=== PATIENT | female | born 1955 | race Two or more races ===

== ENCOUNTER 2024-06-22 09:26 | Day surgery (SDC) | payer OTHER, SELFPAY ==
[2024-06-22] VITALS (14 sets, daily range): BP systolic 114–151; BP diastolic 53–98; BMI 33.5
[2024-06-22] MEDS: NSS 234 ML IV (10:41)
--- NOTE | 2024-06-22 12:03 | ITS.CL.CATH ---
[facility] St[facility] - Catheterization
Cardiac Catheterization
Procedure Report:
CARDIAC CATHETERIZATION REPORT
Date of Procedure: 06/22/2024
Referring: Aaron Spain MD
Indication: Severe aortic stenosis with syncope x 3 and exertional dyspnea
�
HEMODYNAMIC DATA
AO: 136/58
LV: Not done
�
LEFT VENTRICULOGRAPHY: Not performed
�
CORONARY ANGIOGRAPHY
Dominance: Left
Left Main: Normal
LAD: Normal
Circumflex: Normal dominant vessel
RCA: Normal nondominant vessel
�
Closure Device: None-the procedure was performed via the right radial artery.
�
Radiation (mGy): 278
DAP (cm2.Gy): 26.1
Fluoroscopy time: 9.5 minutes
�
CONCLUSIONS
1:�Normal coronary arteries
2:�Symptomatic severe aortic stenosis not invasively evaluated
3. Proceed with evaluation for TAVR
�
�
Copy to: Aaron Spain MD, Migel Hernández MD
�
Dario Giordano MD, FAC, [facility]
--- NOTE | 2024-06-22 14:12 | CONSULT.STRU ---
Consultation
-
Date/Time Consultation Requested: 06/22/2024
Date/Time Consultation Performed: 06/22/2024
Requesting Provider: Dr. Dario Giordano
Performing Provider: JAKE Carreon
Reason for Consultation: Aortic stenosis/ TAVR evaluation
Patient History
Physicians
Family Physician: Migel Hernández
Outpatient Registered Dietitian: Aaron Spain
Primary Registered Dietitian: Aaron Spain
History of Present Illness
Patient is a very pleasant 69yo female who presents today for cardiac cath as part of the evaluation of her aortic stenosis. She denies any significant past medical history and only recently started taking ASA and rosuvastatin. [place] became SOB after climbing up and down several flights of stairs. She states she started to not feel well so sat down then passed out. She was taken to [facility] ([facility] where she had a
complete neuro evaluation. She was found to have a 4.2cm ascending aortic aneurysm, 50% R-ICA stenosis and severe aortic stenosis. After speaking with her prior to the episode in May she had two other syncopal episodes, one on 11/19/2023 and
another on 03/15/2024. These both happened after significant exertion. She does note she feels more fatigued but denies any other significant CHAUDHARY. She denies peripheral edema, chest pain, palpitations, PND or orthopnea. She does have a significant
smoking history of 1 PPD for the past 40 years or so but has quit since May 2024.
Reviewed the pathophysiology of aortic stenosis with the patient and her son. Explained the treatment options of SAVR and TAVR. Explained the TAVR evaluation process including follow up BMP, CT TAVR scan, CT surgery consult and Heart Team
discussion. Provided with script for BMP next week, script and appointment for CT TAVR, Consult appointment with Dr. Mendoza and a copy of the TAVR education booklet with contact information. Allowed for and answered questions.
Past Medical History
Past Medical History: Arrhythmias (First degree AV block), Hypercholesterolemia, Valvular Disease (severe aortic stenosis) and Other (4.2cm ascending thoracic aortic aneurysm, Carotid stenosis(50% R-ICA))
Past Surgical History
Past Surgical History: Other (left knee surgery, breast implants, right wrist surgery)
Dental History
Full dentures - no need for dental clearance
Family History
Mother: at Age (91yo)
Father: at Age (71 (cancer))
Social History
Alcohol: None
Drug: None
Tobacco: Former Smoker (Quit June 03, 2024. Prior 1ppd for 40 years)
Living: Alone
Employment: Employed (works in cafeteria in a school)
Allergies
Allergy/AdvReac Type Severity Reaction Status Date / Time
No Known Allergies Allergy Verified 06/22/24 10:31
Home Medications
�Medication �Instructions �Recorded �Confirmed �Type
aspirin 81 mg chewable tablet 81 mg PO DAILY 06/22/24 06/22/24 History
rosuvastatin 5 mg tablet 5 mg PO DAILY 06/22/24 06/22/24 History
STS%
STS %: 1.65%
Review of Systems
-
History Source: Patient
General: Reports Weight Gain (10 pounds since May) and Fatigue
HEENT: Reports No Symptoms; Denies Visual Changes
Respiratory: Reports Cough (chronic with minimal secretions since quitting smoking)
Cardiac: Reports No Symptoms; Denies Chest Pain, Palpitations or Edema
Abdomen/GI: Reports No Symptoms; Denies Abdominal Pain, Reflux, Nausea, Vomiting or Diarrhea
: Reports No Symptoms
Musculoskeletal: Reports No Symptoms
Skin: Reports No Symptoms
Neurological: Reports Syncope; Denies CVA, TIA or Headaches
Vascular: Reports No Symptoms
Physical Exam
Vital Signs
Temp 97.3 F 06/22/24 12:00
Temp route: Temporal 06/22/24 10:05
Pulse 61 06/22/24 13:30
Blood pressure 129/60 06/22/24 13:27
Blood pressure extremity used: Left upper arm 06/22/24 12:00
Position: Lying 06/22/24 12:00
MAP (cuff-Daniel Monitor) 83 06/22/24 13:27
SaO2 97 06/22/24 13:30
Oxygen Mode of Delivery Room air 06/22/24 12:15
Can the patient verbally communicate their pain? Yes 06/22/24 12:15
Actual Weight 77.9 kg 06/22/24 10:39
Body Mass Index (BMI) 33.5 06/22/24 10:39
Labs
06/15/2024:
H/H: 12.7/38.6
WBC: 6.5
Platelets: [id number]
BUN/Creat: 18/0.97
GFR: 62
Diagnostic Studies
Echocardiogram 06/04/2024 ([facility])
EF: 60-65%
AV: moderate calcification of the aortic valve. There is severe aortic valve stenosis. JADEN is [id number] is no AI.
MV: Mitral valve appears thickened. Mild MAC, No mitral regurgitation or mitral stenosis.
Pulmonic valve: normal
Tricuspid Valve: Appears normal in structure. Mild TR. Mild pulmonary HTN. No tricuspid valve stenosis
Cardiac Catheterization 06/22/2024:
HEMODYNAMIC DATA
AO: 136/58
LV: Not done
�
LEFT VENTRICULOGRAPHY: Not performed
�
CORONARY ANGIOGRAPHY
Dominance: Left
Left Main: Normal
LAD: Normal
Circumflex: Normal dominant vessel
RCA: Normal nondominant vessel
�
Closure Device: None-the procedure was performed via the right radial artery.
�
Radiation (mGy): 278
DAP (cm2.Gy): 26.1
Fluoroscopy time: 9.5 minutes
�
CONCLUSIONS
1:�Normal coronary arteries
2:�Symptomatic severe aortic stenosis not invasively evaluated
3. Proceed with evaluation for TAVR
�
Exam
General: Well Developed, Well Nourished, No Apparent Distress and Comfortable
HEENT: Normocephalic, Moist Mucous Membranes and PERRLA
Neck: Trachea Midline
Respiratory: Clear; Negative Wheezes, Crackles, Rhonchi or Accessory Muscle Use
Cardiac: S1/S2, Regular Rhythm and Murmur (Grade III/ systolic murmur)
GI: Soft, Non Tender, Non Distended and Normal Bowel Sounds
Rectal: Deferred by Provider
Skin: Warm and Dry
Neuro: AO x 3, No Motor Deficits and Nonfocal/Grossly Intact
Extremities: Pulses (+@ dp/pt pulses bilaterally); Negative Lower Level Edema
Psych: Calm
Assessment / Plan
-
Procedure Type:�Isolated AVR
PERIOPERATIVE OUTCOME ESTIMATE %
Operative Mortality 1.65%
Morbidity & Mortality 6.09%
Stroke 1.04%
Renal Failure 1%
Reoperation 2.91%
Prolonged Ventilation 3.22%
Deep Sternal Wound Infection 0.055%
Long Hospital Stay (>14 days) 2.37%
Short Hospital Stay (<6 days)* 54.1%
Severe Aortic stenosis:
��������������� Continue evaluation for TAVR
��������������� [facility]
��������������� CT TAVR scan 07/10/2024 at
��������������� CT surgery consult with Dr. Mendoza 07/10/2024
��������������� Heart team discussion at [facility]
Data Reviewed
-
EKG: Report Reviewed by me
Real Estate Administrator: Report Reviewed by me and Discussed with Physician
Echo: Report Reviewed by me
CT Scan: Report Reviewed by me
MRI: Report Reviewed by me
Labs: Labs Reviewed by me
Old Records: Reviewed (Records from [facility], cardiology consult note)
Total Time Spent with Patient (in minutes): 30
== END 2024-06-22 15:45 | disposition home or self-care (01) ==
LOC: CATH 09:26
PROVIDERS: ATTENDING PHYSICIAN Internal Medicine Cardiovascular Disease; FAMILY PHYSICIAN Family Medicine; OTHER PHYSICIAN Internal Medicine Cardiovascular Disease
DX: I35.0 Nonrheumatic aortic (valve) stenosis (principal); R06.09 Other forms of dyspnea; E78.00 Pure hypercholesterolemia, unspecified; I71.21 Aneurysm of the ascending aorta, without rupture; Z87.891 Personal history of nicotine dependence; Z79.82 Long term (current) use of aspirin
CPT/HCPCS: 93454; C1894; Q9967

== ENCOUNTER → 2024-07-10 09:23 | Outpatient (REF) | payer OTHER, SELFPAY | LOC: RCS 09:23 | PROVIDERS: ATTENDING PHYSICIAN Nurse Practitioner Adult Health; FAMILY PHYSICIAN Family Medicine | DX: I35.0 Nonrheumatic aortic (valve) stenosis (principal) | CPT/HCPCS: 74174; 75572; Q9967 ==

== ENCOUNTER 2024-07-27 04:51 | Inpatient (IN) | payer OTHER, SELFPAY ==
[2024-07-23 08:20] VITALS: BMI 34.4
[2024-07-23 09:00] LABS: INR 0.91
[2024-07-23 09:01] LABS: APTT 35.8 Sec (23.4-35.0)
[2024-07-23 09:02] LABS: % Basophils 0.5 % (0-2); % Eosinophils 4.1 % (0-6); % Immature Granulocytes 0.5 % (0-0.5); % Lymphocytes 27.2 % (20.5-51.1); % Neutrophils 58.7 % (42.2-75.2); Absolute Eosinophils 0.3 10^3/uL (0-0.7); Absolute Lymphocytes 1.8 10^3/uL (1.2-3.4); Absolute Monocytes 0.6 10^3/uL (0.1-0.6); Absolute Neutrophils 3.9 10^3/uL (1.4-6.5); Hematocrit 35.4 % (37.0-47.0); Hemoglobin 12.2 g/dL (12.0-16.0); Mean Corp Hgb Conc. 34.5 g/dL (33.0-37.0); Mean Corpuscular Hgb 32.4 pg (27.0-31.0); Mean Corpuscular Volume 93.9 fL (81.0-99.0); Mean Platelet Volume 10.2 fL (7.4-10.4); Nucleated Red Blood Cells % 0 %; Platelet Count 208 10^3/uL (130-400); Red Blood Cell Count 3.77 10^6/uL (4.20-5.40); Red Cell Dist. Width 12.8 % (11.5-14.5); White Blood Cell Count 6.6 10^3/uL (4.8-10.8)
[2024-07-23 09:20] LABS: Urine Albumin Negative (Neg - Trace); Urine Bilirubin Negative (Negative); Urine Character Clear (Clear); Urine Color Yellow; Urine Glucose Negative (Negative); Urine Ketone Negative (Negative); Urine Leukocyte Negative (Negative); Urine Nitrite Negative (Negative); Urine Occult Blood 1+ (Negative); Urine Specific Gravity 1.005 (<1.030); Urine Urobilinogen Negative (Neg - 1+)
[2024-07-23 09:31] LABS: Urine Bacteria Few (Negative); Urine White Cell 0-2 /HPF (0-5)
[2024-07-23 09:39] LABS: ALT (SGPT) 35 U/L (0-35); AST (SGOT) 33 U/L (14-36); Albumin 4.8 g/dl (3.5-5.0); Alkaline Phosphatase 55 U/L (38-126); Blood Urea Nitrogen 24 mg/dl (7-17); Calcium 10.4 mg/dl (8.4-10.2); Carbon Dioxide 28 mmol/L (22-30); Chloride 101 mmol/L (98-107); Estimated Creatinine Clearance 48 ml/min; Glucose 90 mg/dl (70-99); Potassium 4.8 mmol/L (3.5-5.1); Sodium 143 mmol/L (135-145); Total Bilirubin 0.4 mg/dl (0.2-1.3); Total Protein 7.6 g/dl (6.3-8.2); eGFR > 60.00
[2024-07-23 10:24] LABS: Glycohemoglobin (HgbA1c) 5.3 % (4.0-5.6)
--- NOTE | 2024-07-23 13:31 | CM ---
spoke to pt and daughter in PAT's, we discussed preop AVR teaching including sternal and driving instructions. she is prev indep, lives with her daughter in a 2 story home with no steps to enter. she has the ct surgical educ book, soap and
instructions. plan is for dc to home when medically stable. she is agreeable to a f/u visit with ctrn or vn after dc. plan is for AVR 07/27, cm role explained and all questions answered. cm to follow.
[2024-07-27] VITALS (27 sets, daily range): BP systolic 86–163; BP diastolic 52–78; BMI 33.8
[2024-07-27] MEDS: MAGNESIUM OXIDE 500 MG PO (05:23)
[2024-07-27] MEDS: PROTONIX 40 MG PO (05:23)
[2024-07-27] MEDS: BACTROBAN 2% OINTMENT 1 APPLIC NASAL ×2 (05:23→19:52)
[2024-07-27] MEDS: LOPRESSOR 25 MG PO (05:23)
--- NOTE | 2024-07-27 05:30 | PTCARENOTE ---
admitted pt into CVICU room 2261. pt confirmed 2 showers at home. pt clipped and prepped for CVOR. pre-op meds given. education provided. all questions answered. magnetic resonance imaging coordinator to CVOR.
[2024-07-27 07:27] LABS: ACT+ - POC 93 Seconds (82-134)
[2024-07-27 07:57] LABS: Urine Albumin Negative (Neg - Trace); Urine Bilirubin Negative (Negative); Urine Character Clear (Clear); Urine Color Yellow; Urine Glucose Negative (Negative); Urine Ketone Negative (Negative); Urine Leukocyte Negative (Negative); Urine Nitrite Negative (Negative); Urine Occult Blood 1+ (Negative); Urine Urobilinogen Negative (Neg - 1+)
[2024-07-27 08:12] LABS: Urine Amorphous Seen; Urine Squamous Cell 0-2 /LPF (Few)
[2024-07-27 08:14] LABS: Urine White Cell 0-2 /HPF (0-5)
--- NOTE | 2024-07-27 08:48 | CM ---
Reviewed chart. Mrs. Hernandez is in the operating room today. Prior to admission she resides with her daughter in a two story home without any steps to enter. Prior to adission she was independent with ambulation and adls. She has a prescription
plan. Medical work-up in progress. The discharge plan is to retrun home with her daughter and a home visit by the Cardiothoracic Transitional Care Nurse when medically stable.
[2024-07-27 09:02] LABS: B.E. - POC -0.8 mmol/L; Glucose - POC 87 mg/dl (70-99); HCO3 - POC 24 mmol/L (21-29); Hematocrit - POC 31 % PCV (37-47); Hemodilution- POC No; Hemoglobin Calculated - POC 10.6; Ionized Calcium - POC 1.23 mmol/L (1.12-1.27); PCO2 - POC 41 mmHg (35-45); PO2 - POC 472 mmHg (80-100); POC Comment BASELINE; Potassium - POC 3.7 mmol/L (3.6-5.0); Sodium - POC 141 mmol/L (135-145); pH - POC 7.38 (7.35-7.45)
[2024-07-27 09:26] LABS: B.E. - POC 5.1 mmol/L; Glucose - POC 98 mg/dl (70-99); HCO3 - POC 29 mmol/L (21-29); Hematocrit - POC 24 % PCV (37-47); Hemodilution- POC Yes; Hemoglobin Calculated - POC 8.2; PCO2 - POC 36 mmHg (35-45); PO2 - POC 447 mmHg (80-100); POC Comment CPB; Potassium - POC 3.9 mmol/L (3.6-5.0); Sodium - POC 139 mmol/L (135-145); pH - POC 7.51 (7.35-7.45)
[2024-07-27 09:56] LABS: Glucose - POC 128 mg/dl (70-99); HCO3 - POC 27 mmol/L (21-29); Hematocrit - POC 23 % PCV (37-47); Hemodilution- POC Yes; Hemoglobin Calculated - POC 7.8; Ionized Calcium - POC 1.05 mmol/L (1.12-1.27); PCO2 - POC 35 mmHg (35-45); PO2 - POC 366 mmHg (80-100); POC Comment CPB; Potassium - POC 4.5 mmol/L (3.6-5.0); Sodium - POC 138 mmol/L (135-145)
[2024-07-27 10:37] LABS: B.E. - POC 4.2 mmol/L; Glucose - POC 164 mg/dl (70-99); HCO3 - POC 28 mmol/L (21-29); Hematocrit - POC 26 % PCV (37-47); Hemodilution- POC Yes; Hemoglobin Calculated - POC 8.7; Ionized Calcium - POC 1.08 mmol/L (1.12-1.27); PCO2 - POC 38 mmHg (35-45); PO2 - POC 392 mmHg (80-100); POC Comment WARM; Potassium - POC 4.4 mmol/L (3.6-5.0); Sodium - POC 139 mmol/L (135-145); pH - POC 7.48 (7.35-7.45)
[2024-07-27 10:43] LABS: ACT+ - POC 107 Seconds (82-134)
[2024-07-27 11:37] LABS: B.E. - POC 0.5 mmol/L; Glucose - POC 126 mg/dl (70-99); HCO3 - POC 25 mmol/L (21-29); Hematocrit - POC 25 % PCV (37-47); Hemodilution- POC Yes; Hemoglobin Calculated - POC 8.5; Ionized Calcium - POC 1.48 mmol/L (1.12-1.27); O2 Saturation %Calculated-POC 99.8 % (92-96); PCO2 - POC 36 mmHg (35-45); PO2 - POC 206 mmHg (80-100); POC Comment POST; Potassium - POC 3.9 mmol/L (3.6-5.0); Sodium - POC 141 mmol/L (135-145); pH - POC 7.44 (7.35-7.45)
--- NOTE | 2024-07-27 11:43 | W.CVOR.SURPR ---
CVOR Surgeon Immed Pre Op
-
I have examined this patient prior to performance of the scheduled procedure.
The patient's condition is unchanged from the time of the dictated/written History and
Physical and the patient is able to undergo the scheduled procedure.
--- NOTE | 2024-07-27 11:43 | W.IMMPOSTOP ---
Addendum entered and electronically signed by Gary Mendoza MD 07/27/24 12:23:
[id number]
Original Note:
Surgical Immed Post Op Note
-
CARDIAC SURGERY OPERATIVE NOTE:
Preoperative Dx:
Severe aortic valve stenosis (P/M: 83/56, JADEN 0.72)
Ascending aortic dilation (max 4.4cm)
Postoperative Dx:
Same
BAV
Thin aortic wall
Procedures:
1) Median sternotomy
2) AVR (#23mm Inspiris Resilia)
3) Ascending aortic wrap w/ hemashield kalispel graft
Surgeon:
Gary Mendoza M.D.
Assistants:
Kayleen CaseA.-CMendoza; hr administrative assistant throughout
Bro Giang PMendozaA.-C.; [id number] closure
Anesthesia:
Ulices Carrillo M.D.
Perfusion:
Nesha Mckeon, C.C.P.; XC: 68min, CPB: 85min
Findings:
True bicuspid AV w/ fusion of the right & non-coronary cusps w/ significant leaflet calcifications w/ minor circumferential annular extension. The R&L main coronaries were in their normal anatomic locations, but were quite low as demonstrated on
preop CTA-C.
Ascending aorta was dilated to maximal diameter of 4.4cm
Aortic tissues w/ good/normal tissue strenth w/ thin hoang - ascending aortic wrap performed
POST-KELLY: normal biventricular function w/ well-seated AVR w/o PVL/AI, mean gradient 5mmHg
Implants:
[employer], Inspiris Resilia AVR (23mm); Model [id number], SN: [id number]
Hemashield [place], 34mm, LOT [id number], SN: [id number]
Epicardial V-wire x 1; grounding V-wire
CT x 2 (mediastinal)
Sternal wires x 7
Sternal 'X' plate & 8 12mm screws
Condition:
70 isoelectric sinus. 105/59. 31/21. CVP 19. CO/CI: 2.6/1.5. MvO2: 57 (transfusing 1U PRBC)
GTTS: levophed 1, precedex 0.5, insulin 1
Stable/guarded to CVICU
[2024-07-27 11:45] LABS: B.E. - POC -3.1 mmol/L; Glucose - POC 117 mg/dl (70-99); HCO3 - POC 22 mmol/L (21-29); Hematocrit - POC 23 % PCV (37-47); Hemodilution- POC Yes; Hemoglobin Calculated - POC 7.9; Ionized Calcium - POC 1.21 mmol/L (1.12-1.27); O2 Saturation %Calculated-POC 62.5 % (92-96); PCO2 - POC 41 mmHg (35-45); PO2 - POC 34 mmHg (80-100); Potassium - POC 4.1 mmol/L (3.6-5.0); Sodium - POC 139 mmol/L (135-145); pH - POC 7.35 (7.35-7.45)
[2024-07-27 11:51] LABS: B.E. - POC -1.5 mmol/L; Glucose - POC 128 mg/dl (70-99); HCO3 - POC 24 mmol/L (21-29); Hematocrit - POC 26 % PCV (37-47); Hemodilution- POC Yes; Hemoglobin Calculated - POC 8.9; Ionized Calcium - POC 1.33 mmol/L (1.12-1.27); O2 Saturation %Calculated-POC 57.1 % (92-96); PCO2 - POC 44 mmHg (35-45); PO2 - POC 31 mmHg (80-100); Potassium - POC 4.1 mmol/L (3.6-5.0); Sodium - POC 141 mmol/L (135-145); pH - POC 7.35 (7.35-7.45)
[2024-07-27 12:21] LABS: Glucose - Point of Care 134 mg/dl (70-99)
[2024-07-27 12:30] LABS: B.E. -0.7 mmol/L; HCO3 22.9 mmol/L (21-28); Ionized Calcium 1.25 mMOL/L (1.15-1.33); O2 Saturation % 99.9 % (94-98); PCO2 33 mmHg (32-35); PO2 193 mmHg (83-108); Potassium 4.3 mMOL/L (3.5-5.1); Sodium 139 mMOL/L (136-145); pH 7.45 (7.35-7.45)
[2024-07-27 12:31] LABS: Hematocrit 28.1 % (37.0-47.0); Hemoglobin 9.9 g/dL (12.0-16.0); Platelet Count 130 10^3/uL (130-400)
[2024-07-27 12:34] LABS: Mixed Venous O2 Saturation 83.7 %
[2024-07-27 12:37] LABS: INR 1.33; PT 16.3 Sec (11.4-14.6)
[2024-07-27 12:38] LABS: APTT 33.6 Sec (23.4-35.0)
[2024-07-27 12:51] LABS: Blood Urea Nitrogen 25 mg/dl (7-17); Estimated Creatinine Clearance 53 ml/min; Glucose 125 mg/dl (70-99); Magnesium 2.5 mg/dl (1.6-2.3)
[2024-07-27 13:09] LABS: Glucose - Point of Care 135 mg/dl (70-99)
--- NOTE | 2024-07-27 13:11 | PTCARENOTE ---
07/27/24 Dayshift: Received pt from CVOR@ 1215. Pt is intubated and sedated on Precedex and Insulin. Sedated. Sandhya 3 NSR with 1st degree HB on monitor V-wire attached but not on. R IJ cordis with [place]@45. L radial a-line, zeroed and calibrated.
Pulses palpable, - edema. Lungs clear, ET tube size 7.5, 22@lip. FIO2 60% POX:100. MedsX2 draining red fluid WNL. Hypoactive BS, abdomen soft. [place] intact, draining clear yellow fluid WNL. Sternal incision with Aquacel dressing with scant blood
drainage. Family updated.
--- NOTE | 2024-07-27 13:13 | CON.INTV ---
Consultation
Consultation Request
Date/Time Consultation Requested: 07/27/2024
Date/Time Consultation Performed: 07/27/2020
Requesting Provider: Dr. Mendoza
Performing Provider: Dr. Conrad Chen
Reason for Consultation: Status post AVR
Medical History
-
History of Present Illness:
69-year-old woman with history of severe aortic stenosis, electively admitted for aortic valve replacement. Underwent aortic valve replacement with ascending aortic wrap grafting.
Currently in the critical care unit, sedated. Unable to provide history.
Appears comfortable.
Chest tube in place without air leak.
Past Medical History
Past Medical History: Other (See assessment and plan)
Social History
Tobacco: Smoker (Quit June 03, 2024)
Alcohol: Occasional (Social)
Drug: None
Family History
Family History: Unable to Obtain
Allergies / Home Medications
Allergies
Allergy/AdvReac Type Severity Reaction Status Date / Time
No Known Allergies Allergy Verified 07/19/24 09:07
Home Medications
�Medication �Instructions �Recorded �Confirmed �Last Taken �Type
aspirin 81 mg chewable tablet 81 mg PO DAILY 06/22/24 07/27/24 07/26/24 08:00 History
rosuvastatin 5 mg tablet 5 mg PO DAILY 06/22/24 07/27/24 07/26/24 08:00 History
cholecalciferol (vitamin D3) 25 25 mcg PO DAILY 07/19/24 07/27/24 07/18/24 History
mcg (1,000 unit) capsule (Vitamin
D3)
Review of Systems
-
Unable to Obtain full review of systems at this time due to: Patient Intubation
Vitals / Labs / Diagnostic Testing
Vital Signs
Temp Pulse Resp BP Pulse Ox
95.9 F L 68 12 157/78 98
07/27/24 13:00 07/27/24 12:45 07/27/24 12:45 07/27/24 05:23 07/27/24 12:34
Lab Data
07/27/24 12:16
Laboratory Results
07/27/24
12:16
PT 16.3 H
INR 1.33
APTT 33.6
pH 7.45
pCO2 33
pO2 193 H
HCO3 22.9
O2 Delivery Level
Microbiology
07/23/24 08:32 Nose MRSA Screen - Final
No Methicillin Resistant Staphylococcus aureus isolated.
Diagnostic Testing:
Physical Exam
-
HEENT: Normocephalic and Other (ET tube in place without secretions)
Cardiovascular: S1/S2
Respiratory: Clear, Non-Labored Respirations and Other (Chest tube in place without significant output or air leak)
GI: Soft and Non Distended
Neurology: Other (On mechanical ventilation, sedated)
Skin: Warm and Good Color
General: Comfortable
Assessment
-
Status post AVR and ascending aortic wrap
Postoperative mechanical ventilation
Postoperative anemia
Assessment and plan:
She is doing well postop-currently on mechanical ventilation and appears comfortable.
ABG reviewed: Adequate oxygenation and ventilation
Continue SIMV mode with no change
Spontaneous breathing trial per protocol once sedation wears off.
Anemia noted-no evidence of acute bleeding
Follow H&H serially
Hemodynamics -on low-dose Levophed, wean off as able
Will follow urinary output
Chest tube with no excessive drainage-no air leak.
Chest x-ray reviewed: With no pneumothorax or fluid collections.
Remain nothing by mouth
Head of the bed elevation
Glycemic control per protocol
DVT prophylaxis when safe from the surgical perspective.
Critical care statement: A total of 32 minutes of critical care time was provided for this patient today. This includes management of unstable vital signs, evaluation of the patient at bedside, reviewing the patient's pertinent medical records
including ventilator settings, arterial blood gases, radiographs, microbiology, laboratory evaluations and discussion with primary team, critical care nursing, and respiratory therapy.
[2024-07-27] MEDS: CRESTOR PO (13:52)
[2024-07-27] MEDS: NOVOLOG FLEXPEN SC ×2 (13:52→16:47)
[2024-07-27] MEDS: NEURONTIN PO ×2 (13:52→16:46)
[2024-07-27] MEDS: NSS 500 IV (13:52)
[2024-07-27] MEDS: VITAMIN D3 (cholecalciferol) PO (13:53)
[2024-07-27] MEDS: ANCEF 10 IV ×2 (13:53→13:54)
[2024-07-27] MEDS: LR 250 ML IV (13:55)
--- NOTE | 2024-07-27 14:00 | PTCARENOTE ---
CPAP trial initiated. ABG sent. result reviewed with CTVINI. Respiratory called to extubated.
[2024-07-27 14:01] LABS: Glucose - Point of Care 140 mg/dl (70-99)
[2024-07-27 14:28] LABS: ACT+ - POC > 1003 Seconds (82-134)
[2024-07-27 14:28] LABS: ACT+ - POC > 1003 Seconds (82-134)
[2024-07-27 14:28] LABS: ACT+ - POC > 1003 Seconds (82-134)
[2024-07-27 14:28] LABS: ACT+ - POC > 1003 Seconds (82-134)
--- NOTE | 2024-07-27 14:28 | W.PN.CD ---
Today's Communication / Plan
-
Follow telemetry
Post operative management per CT surgery
Impression / Plan
-
BACKGROUND: 69F with HTN, & PAD, and severe who presented for AVR
Lay Out Helper: Dr. Spain
Severe S/P Inspiris Resilia AVR (23mm) on 07/27/[address] Mendoza
-Post KELLY: Normal biventricular function with well-seated AVR w/o PVL/AI, mean gradient 5mmHg
-EKG with prolonged QT, EKG in am
-Telemetry stable, follow
PAD, 50% calcified lesion inside the right internal carotid artery, on rosuvastatin
SUBJECTIVE:
Intubated. Operative notes reviewed.
Physical Exam
Vital Signs/Labs
Vital Signs
Temp Pulse Resp BP Pulse Ox
97.6 F 68 12 157/78 98
07/27/24 14:00 07/27/24 12:45 07/27/24 12:45 07/27/24 05:23 07/27/24 13:47
07/26/24 07/27/24 07/28/24
06:59 06:59 06:59
Actual Weight 78.4 kg
07/27/24 12:16
PT 16.3 Sec (11.4-14.6) H 07/27/24 12:16
INR 1.33 07/27/24 12:16
APTT 33.6 Sec (23.4-35.0) 07/27/24 12:16
Magnesium 2.5 mg/dl (1.6-2.3) H 07/27/24 12:16
Physical Exam
Constitutional: No acute distress and Comfortable
EENT: Anicteric and Moist mucous membranes
Cardiovascular: Rhythm & rate is regular and Pedal edema is absent
Respiratory: Lungs clear to auscul.
GI: Soft, Distention absent, Flat, Non tender and Normal bowel sounds
Neuro/Psych: Other
Other: Skin (warm and dry)
Data Reviewed
-
Date of Service: July 27, 2024
[2024-07-27] MEDS: OFIRMEV 100 IV (14:37)
[2024-07-27 14:40] LABS: B.E. 0.1 mmol/L; HCO3 22.9 mmol/L (21-28); Ionized Calcium 1.23 mMOL/L (1.15-1.33); O2 Saturation % 99.4 % (94-98); PCO2 30 mmHg (32-35); PO2 130 mmHg (83-108); Potassium 3.9 mMOL/L (3.5-5.1); Sodium 139 mMOL/L (136-145); pH 7.49 (7.35-7.45)
--- NOTE | 2024-07-27 15:05 | PTCARENOTE ---
Pt extubated @1505. tolerated extubation. O2@6l. POX: 99%. I/S:1250, pt instructed on use. VSS, NSR with 1st degree HB on monitor. No neuro deficits noted. Pt resting bed.
[2024-07-27] MEDS: TYLENOL PO (15:06)
[2024-07-27] MEDS: KCL 50 IV (15:06)
[2024-07-27 15:09] LABS: Glucose - Point of Care 101 mg/dl (70-99)
--- NOTE | 2024-07-27 15:16 | RESPNOTE ---
Extubated to 6 liter NC without incident 100% HR 67 IS done 1250Ml
--- NOTE | 2024-07-27 15:45 | PTCARENOTE ---
VSS, NSR with 1st degree HB on monitor. I/S encouraged. Plan of care discussed with pt. Pt agrees. Pt resting in bed with family at bedside.
[2024-07-27 16:07] LABS: Glucose - Point of Care 104 mg/dl (70-99)
[2024-07-27] MEDS: LOW STRENGTH ASPIRIN 81 MG PO (16:13)
[2024-07-27] MEDS: PACERONE PO (16:46)
--- NOTE | 2024-07-27 16:50 | PTCARENOTE ---
VSS. NSR with 1st degree HB on monitor. T: 98.6, B/P:101/51, HR: 64, R: 18, 6L O2 POX 99%, Pt resting in bed. Family at bedside.
[2024-07-27 17:06] LABS: Glucose - Point of Care 124 mg/dl (70-99)
[2024-07-27] MEDS: ANCEF 5 IV (17:23)
[2024-07-27 17:37] LABS: Hematocrit 27.4 % (37.0-47.0); Hemoglobin 9.7 g/dL (12.0-16.0); Platelet Count 179 10^3/uL (130-400)
[2024-07-27 18:05] LABS: Glucose - Point of Care 123 mg/dl (70-99)
[2024-07-27] MEDS: ROXICODONE 2.5 MG PO (18:45)
[2024-07-27] MEDS: DILAUDID 0.25 MG IV (19:53)
[2024-07-27] MEDS: SODIUM BICARBONATE 50 MEQ IV (19:54)
[2024-07-27 20:09] LABS: Glucose - Point of Care 119 mg/dl (70-99)
--- NOTE | 2024-07-27 20:19 | PTCARENOTE ---
Assessment unchanged, VSS. Bicarb ordered and given. Pt resting in bed.
[2024-07-27] MEDS: SENOKOT-S PO (20:20)
--- NOTE | 2024-07-27 20:29 | PTCARENOTE ---
VSS, NSR with 1st degree heart block. Per CVPA ED, titrate LEVO from blood pressure cuff measurements keeping SBP >85. Pt resting in bed.
--- NOTE | 2024-07-27 20:50 | PTCARENOTE ---
VSS, NSR with 1st degree heart block. Per [facility] ED, titrate LEVO from blood pressure cuff measurements. Pt resting in bed.
[2024-07-27] MEDS: NEURONTIN 100 MG PO (21:46)
[2024-07-27] MEDS: TYLENOL 1000 MG PO (21:46)
[2024-07-27] MEDS: MYLICON 80 MG PO (21:53)
[2024-07-27 22:01] LABS: Glucose - Point of Care 106 mg/dl (70-99)
[2024-07-27] MEDS: CALCIUM CHLORIDE 10% SYRINGE 60 MG IV (22:01)
--- NOTE | 2024-07-27 23:00 | PTCARENOTE ---
Received pt from [place] blue RN. pt resting comfortably in bed. Pt is AAOx4. On going pain management. NSR with 1st degree AVB and prolonged QT. VSS. heart sounds audible, possible rub, radial and DP pulses are palpable, no edema noted, temp
epicardial V-vires connected to box, box off. following blood pressure cuff SBP/MAP and adjusting leovphed gtt to keep SBP greater than 85, per CVPA. lung sounds diminished at b/l bases, spo2 98%, 4 LNC, x2 MS to -20 walk suction, no air leaks, no
crepitus. hypoactive BS x4 quadrants, abdomen soft non tender, passing gas. pt voiding dark yellow urine via gilmore catheter. Urine output has decreased, CVPA made aware. surgical sites maintained. right IJ cordis, swan catheter, left radial A-line,
and PIV all maintained, leveled, and zeroed. insulin and levophed gtt infusing. call bazan within reach. will continue to monitor.
[2024-07-28] VITALS (85 sets, daily range): BP systolic 83–122; BP diastolic 46–86; PULSE 67; O2SAT 94–98; BMI 34.7
[2024-07-28 00:01] LABS: Glucose - Point of Care 106 mg/dl (70-99)
[2024-07-28] MEDS: LR 250 ML IV (00:57)
[2024-07-28] MEDS: ANCEF 5 IV ×2 (01:45→08:42)
[2024-07-28 02:06] LABS: Glucose - Point of Care 98 mg/dl (70-99)
--- NOTE | 2024-07-28 03:00 | PTCARENOTE ---
pt assessment unchanged. NSR on monitor, VS stable. pt resting comfortably. attempting to wean Levophed down, within parameters ordered by CVPA-SBP greater than 85, following cuff pressures. urine out put remains low, CVPA aware. 250mls of LR
ordered and given. call bazan within reach. will continue to monitor.
--- NOTE | 2024-07-28 03:27 | W.PN.CT ---
Today's Communication / Plan
-
Plan:
-No major issues overnight. Hemodynamically and neurologically intact
-Successfully extubated on 07/27/24 @ 1505
-Off and on Levophed overnight, able to wean off @ 0600 this AM. Remains insulin gtt per protocol
-Last CI 2.07, MVO2 63.4%, u/o since OR 820 mL
-Consider 1u PRBC for h/h 8.7/24.5 given postop hypotension
-D/C a-line and swan today
-D/C gilmore today
-Will transfer to [facility] phase today once of insulin gtt
-Monitor chest tube drainage: 2med
-Cont. current meds (ASA, Crestor, Amiodarone; held BB last night while on Levophed gtt)
-Maintain cordis
-Maintain temporary PW (will cut before d/c home)
-Wean off of O2 as tolerated
-Encourage use of IS
-OOB into chair/Ambulate
Assessment / Plan
-
Assessment:
-S/P Median sternotomy/AVR (#23mm Inspiris Resilia)/Ascending aortic wrap w/ Hemashield circle graft, by Dr. Mendoza, 07/27/24, pod#1
-Severe /bicuspid aortic valve
-Dilated Asc. Aorta (max 4.4 cm)
-Thin aortic wall
-LVEF 60-65% per intraop KELLY
-HLD
-Class 1 obesity (BMI 33.8)
-1st deg HB
-Syncope
-S/p Left TKA
-S/p Right wrist repair
-S/p Breast implants
-Acute postop blood loss/Anemia (stable without transfusion)
-Acute postop atelectasis
-Acute postop hypovolemia with subsequent hypervolemia
Discussed patient care with: Cardiology, Nursing, Respiratory Therapy, Pharmacy and Care Team
Subjective
Procedure
S/P Median sternotomy/AVR (#23mm Inspiris Resilia)/Ascending aortic wrap w/ Hemashield circle graft, by Dr. Mendoza, 07/27/24
-
Date of Service: July 28, 2024
Pt c/o incisional pain, otherwise feels well
Objective Data
-
PT 16.3 Sec (11.4-14.6) H 07/27/24 12:16
INR 1.33 07/27/24 12:16
APTT 33.6 Sec (23.4-35.0) 07/27/24 12:16
Vital Signs
Vital Signs
Temp Pulse Resp BP Pulse Ox
99.4 F 65 13 98/58 96
07/28/24 02:49 07/28/24 02:45 07/28/24 02:49 07/28/24 02:45 07/28/24 02:49
CT Intake/Output/Weight
07/27/24 07/27/24 07/28/24
06:59 18:59 06:59
Intake Total 1096.1 / 1715.9 619.8 / 1715.9
Output Total 645 / 975 330 / 975
Balance 451.1 / 740.9 289.8 / 740.9
SaO2: 96 (2L)
Physical Exam
-
General: Awake, Oriented and AOx3
Cardiovascular: Regular rate & rhythm, No Murmurs, No Rub and No Gallop
Respiratory: Decreased Breath Sounds (at bases, otherwise clear)
Sternum: Stable
Incision: Clean, Dry, Intact and Dressing Intact
Extremities: No Edema
Data Reviewed
-
Lab Results: Results Reviewed
Medications: Active Meds Reviewed
Chest X-Ray: Report Reviewed and Image Reviewed
ECG: Report Reviewed and Image Reviewed
[2024-07-28] MEDS: ROXICODONE 5 MG PO (04:05)
[2024-07-28 04:06] LABS: Glucose - Point of Care 118 mg/dl (70-99)
[2024-07-28 04:07] LABS: Mixed Venous O2 Saturation 63.4 %
[2024-07-28 04:12] LABS: Hematocrit 24.5 % (37.0-47.0); Hemoglobin 8.7 g/dL (12.0-16.0); Mean Corp Hgb Conc. 35.5 g/dL (33.0-37.0); Mean Corpuscular Hgb 32.1 pg (27.0-31.0); Mean Corpuscular Volume 90.4 fL (81.0-99.0); Mean Platelet Volume 10.6 fL (7.4-10.4); Platelet Count 145 10^3/uL (130-400); Red Blood Cell Count 2.71 10^6/uL (4.20-5.40); Red Cell Dist. Width 13.7 % (11.5-14.5); White Blood Cell Count 10.2 10^3/uL (4.8-10.8)
[2024-07-28 04:42] LABS: Blood Urea Nitrogen 37 mg/dl (7-17); Carbon Dioxide 22 mmol/L (22-30); Chloride 107 mmol/L (98-107); Estimated Creatinine Clearance 43 ml/min; Glucose 111 mg/dl (70-99); Magnesium 2.1 mg/dl (1.6-2.3); Potassium 4.3 mmol/L (3.5-5.1); Sodium 141 mmol/L (135-145); eGFR 53.72
[2024-07-28] MEDS: SODIUM BICARBONATE 50 MEQ IV (05:23)
[2024-07-28] MEDS: TYLENOL 1000 MG PO ×2 (05:23→22:58)
--- NOTE | 2024-07-28 05:30 | PTCARENOTE ---
Labs drawn and sent. CHG bath provided. new gown and tele leads. pt remains lined while attempting to wean levophed gtt. amp of bicarb given. call bazan within reach. on going monitoring.
[2024-07-28 06:06] LABS: Glucose - Point of Care 88 mg/dl (70-99)
--- NOTE | 2024-07-28 07:00 | PTCARENOTE ---
pt remains lined and in bed. difficult to wean levo. Hbg 8.7, will possibly need PRBC. shift report given to on coming RN
[2024-07-28] MEDS: LEVOPHED 250 IV (07:09)
--- NOTE | 2024-07-28 07:36 | W.PN.ANS.POP ---
Anesthesia Post Operative
- Anesthesia Post Op Note
Vital Signs Stable-See Nursing Note: Yes
Airway Patent: Yes
Adequate Pain Control: Yes
Change in Mental Status: No
Current Postoperative Nausea & Vomiting: No
Anesthesia Complications: No
General Anesthetic Recall: No
Unplanned Admission: No
Post Op Hydration Adequate: Yes
--- NOTE | 2024-07-28 08:00 | PTCARENOTE ---
Received pt from prev RN. walking rounds done. pt resttingin bed at time of assessment. Pt is AAOx3. NSR. VSS. pulses are palpable with just some hand edema. temp epicardial V-vires connected to box, box off. levophed gtt @ 1 mcg currently. will
wean off as able. lung sounds diminished at bases. 95% RA. CT x2 MS to -20 wall suction. no air leaks/crepitus. hypoactive BS. gilmore catheter present with yellow urine. all surgical sites c/d/i. right IJ cordis/swan present. left radial A-line, and
PIV patent. insulin and levophed gtt infusing. call bazan within reach. will continue to monitor.
[2024-07-28 08:01] LABS: Glucose - Point of Care 111 mg/dl (70-99)
[2024-07-28] MEDS: NOVOLOG FLEXPEN 4 UNITS SC (08:41)
[2024-07-28] MEDS: VITAMIN D3 (cholecalciferol) 25 MCG PO (08:42)
[2024-07-28] MEDS: PROTONIX 40 MG PO (08:42)
[2024-07-28] MEDS: BACTROBAN 2% OINTMENT 1 APPLIC NASAL ×2 (08:42→20:50)
[2024-07-28] MEDS: LOW STRENGTH ASPIRIN 81 MG PO (08:42)
[2024-07-28] MEDS: MAGNESIUM OXIDE 500 MG PO ×2 (08:43→20:51)
[2024-07-28] MEDS: SENOKOT-S 1 TABLET PO ×2 (08:43→20:51)
[2024-07-28] MEDS: PACERONE 200 MG PO ×2 (08:43→15:24)
[2024-07-28] MEDS: NEURONTIN 100 MG PO ×3 (08:43→22:58)
[2024-07-28] MEDS: CRESTOR 5 MG PO (08:43)
[2024-07-28] MEDS: NSS IV (08:44)
[2024-07-28 09:00] LABS: Mixed Venous O2 Saturation 52.9 %
[2024-07-28 10:14] LABS: Glucose - Point of Care 109 mg/dl (70-99)
[2024-07-28] MEDS: DOBUTREX 500 MG 250 IV (10:44)
--- NOTE | 2024-07-28 11:18 | PTCARENOTE ---
mixed venous in the 50s. remains on levo. DOBUT ordered to be started at 1.5 mcg and not titrated, will continue to monitor.
--- NOTE | 2024-07-28 11:24 | W.PN.CD ---
Today's Communication / Plan
-
Continue postop care as directed by CT surgery
Monitor on telemetry
Impression / Plan
-
BACKGROUND: 69F with HTN, & PAD, and severe who presented for AVR
Policy Issue Clerk: Dr. Spain
Severe S/P Inspiris Resilia AVR (23mm) on 07/27/[address] Mendoza
-Post KELLY: Normal biventricular function with well-seated AVR w/o PVL/AI, mean gradient 5mmHg
-Telemetry stable, follow
PAD, 50% calcified lesion inside the right internal carotid artery, on rosuvastatin
SUBJECTIVE:
In chair. Comfortable with adequate . pain control. No shortness of breath no palpitations
Physical Exam
Vital Signs/Labs
Vital Signs
Temp Pulse Resp BP Pulse Ox
99.0 F 68 19 101/55 97
07/28/24 08:00 07/28/24 09:30 07/28/24 09:30 07/28/24 09:15 07/28/24 09:30
07/27/24 07/28/24 07/29/24
06:59 06:59 06:59
Actual Weight 78.4 kg 80.7 kg
07/28/24 03:53
07/28/24 03:53
PT 16.3 Sec (11.4-14.6) H 07/27/24 12:16
INR 1.33 07/27/24 12:16
APTT 33.6 Sec (23.4-35.0) 07/27/24 12:16
Magnesium 2.1 mg/dl (1.6-2.3) 07/28/24 03:53
Physical Exam
Constitutional: No acute distress
EENT: Anicteric
Cardiovascular: Rhythm & rate is regular and Systolic murmur absent
Respiratory: Wheeze Absent and Rhonchi Absent
GI: Soft
Data Reviewed
-
Date of Service: July 28, 2024
Medical Decision Making: Reviewed Test Results
Medical Tests (PFT, Pathology etc): Report Reviewed by me
Labs: Labs Reviewed by me
--- NOTE | 2024-07-28 11:56 | W.PN.INTV ---
Today's Communication / Plan
Recommendations
Continue postoperative care
Follow chest tube output
Follow H&H
Increase activity as able
Sign off
Assessment
-
Status post AVR and ascending aortic wrap
Postoperative mechanical ventilation
Postoperative anemia
Assessment and plan:
Postoperative day 1
Doing well
Extubated and on low rate supplemental oxygen
Encourage incentive spirometer
Increase mobility as able
Anemia noted-no evidence of acute bleeding has received 1 unit of packed red blood cell
Follow H&H serially
Hemodynamics -off vasopressors
Adequate urinary output
Normal renal function
Chest tube with no excessive drainage-no air leak.
Chest x-ray reviewed: With no pneumothorax or fluid collections.
Advanced diet as tolerated
Head of the bed elevation
Glycemic control per protocol
DVT prophylaxis when safe from the surgical perspective.
Patient has been transferred to telemetry phase
Critical care team will sign off.
Subjective Dataa
Subjective Data
Date of Service:
Date of Service: July 28, 2024
Chief Complaint: [employer] Operator Follow Up (Status post AVR)
Subjective:
Extubated, has no significant complaints
Denies shortness of breath at rest
Denies any coughing or phlegm production
Off vasopressors
Review of Systems
General: Fever (n)
Cardiopulmonary: Dyspnea (none at rest)
GI: Abdominal Pain (n) and Nausea (n)
Neuro: Headache
Objective Data
Data Reviewed
Vital Signs / I&O / Oxygen:
Vital Signs
Temp Pulse Resp BP Pulse Ox
99.0 F 68 19 101/55 97
07/28/24 08:00 07/28/24 09:30 07/28/24 09:30 07/28/24 09:15 07/28/24 09:30
Intake and Output
10/09/0907/28/24 07/29/24
06:59 06:59 06:59
Intake Total 1819.7 / 1843.9 100.6 / 100.6
Output Total 1090 / 1115 170 / 170
Balance 729.7 / 728.9 -69.4 / -69.4
SaO2 [SIMV] 100
SaO2 97
Nasal Cannula flow liters per 2
minute
Physical Exam
General: Comfortable
HEENT: Normocephalic
Cardiovascular: S1-S2
Respiratory: Non-Labored Respirations and Chest Tube (No significant air leak or drainage)
GI: Soft and Non Distended
Neurology: Awake, Alert and No Motor Deficits
Skin: Warm
Labs/Micro/Reports
Lab Data
07/28/24 03:53
07/28/24 03:53
Laboratory Results
07/27/24 07/27/24
12:16 14:33
PT 16.3 H
INR 1.33
APTT 33.6
pH 7.45 7.49 H
pCO2 33 30 L
pO2 193 H 130 H
HCO3 22.9 22.9
O2 Delivery Level Not Reportable
[2024-07-28 12:15] LABS: Glucose - Point of Care 102 mg/dl (70-99)
[2024-07-28] MEDS: NOVOLOG FLEXPEN SC (12:42)
[2024-07-28] MEDS: NSS 500 IV ×2 (12:43→21:45)
--- NOTE | 2024-07-28 12:57 | PTCARENOTE ---
oob into chair with min assist. tolerated well. min complaints of pain. resting comfortably. weaned to RA. pulse ox 94%. will continue to monitor.
[2024-07-28 14:14] LABS: Mixed Venous O2 Saturation 55.7 %
[2024-07-28] MEDS: TYLENOL PO (15:14)
[2024-07-28] MEDS: ROXICODONE 2.5 MG PO (15:24)
--- NOTE | 2024-07-28 16:19 | PTCARENOTE ---
remains lined due to low mvo2. otherwise, VSS. family at bedside. minimal complaints of pain at this time. Will continue to monitor.
[2024-07-28] MEDS: DILAUDID 0.25 MG IV (21:19)
--- NOTE | 2024-07-28 22:00 | PTCARENOTE ---
Patient received OOB in chair. Family at bedside. Patient A+A+Ox3. No neurological deficits noted. Family went home for evening. Patient assisted to bed with assist x2. Room air. SpO2 91%. Mild CHAUDHARY. 2L O2 placed for HS. SpO2 98%. Two
Mediastinal chest tubes - Intact and patent - No air leak - 10 ml red drainage. Chest tube dressing intact. Sinus Rhythm. Heart rate 60-70's. V-Wire connected to box. Patient with no c/o chest pain, pressure or discomfort. Sternal dressing
intact. Abdomen soft, round. Normoactive bowel sounds. No BM. No c/o nausea. No vomiting. Salcedo catheter - Temperature sensing - Yellow urine - Outputs as documented. Positive, palpable pulses. Right [place] Cord[place] catheter. Left
radial arterial line. A-Line, PAP, CVP - Pressure bag/Saline flush. C.O. 3.80 C.I. 2.17 SVR 1157 CVP 11 PAP 31/14 (20). Dobutamine gtt at 1.5 mcq/kg/min. IV Dilaudid 0.25mg for pain management. Assessment as documented.
[2024-07-29] VITALS (23 sets, daily range): BP systolic 87–122; BP diastolic 43–77; BMI 35.6
--- NOTE | 2024-07-29 00:30 | PTCARENOTE ---
Patient sleeping without difficulty. C.O. 4.47 C.I. 2.55 SVR 841 CVP 11 PAP 14/10 (19). Assessment/Interventions as documented.
--- NOTE | 2024-07-29 02:20 | PTCARENOTE ---
C.O. 4.28 C.I. 2.45 SVR 1065 CVP 10 PAP /13 (19). Patient sleeping without difficulty. Assessment/Interventions as documented.
--- NOTE | 2024-07-29 03:54 | W.PN.CT ---
Today's Communication / Plan
-
Plan:
-No major issues overnight. Hemodynamically and neurologically intact
-Started on dobutamine gtt @ 1.5 mcg/kg/min. Amiodarone and BB on hold while on dobutamine
-Last CI 3.11, MVO2 58.3%, 24hrs u/o 875 mL
-Consider 1u PRBC for h/h 7.9/22.2 given postop hypotension, decreased perfusion requiring dobutamine
-D/C a-line and swan today
-D/C [place] today
-Will transfer to [facility] phase today once off dobutamine gtt
-Consider d/c of chest tubes: 2med 70/130
-Cont. current meds (ASA, Crestor; holding Amiodarone and Lopressor while on dobutamine)
-Maintain cordis another day
-Maintain temporary PW (will cut before d/c home)
-Encourage use of IS
-OOB into chair/Ambulate
Assessment / Plan
-
Assessment:
-S/P Median sternotomy/AVR (#23mm Inspiris Resilia)/Ascending aortic wrap w/ Hemashield [place] graft, by Dr. Mendoza, 07/27/24, pod#2
-Severe /bicuspid aortic valve
-Dilated Asc. Aorta (max 4.4 cm)
-Thin aortic wall
-LVEF 60-65% per intraop KELLY
-HLD
-Class 1 obesity (BMI 33.8)
-1st deg HB
-Syncope
-S/p Left TKA
-S/p Right wrist repair
-S/p Breast implants
-Acute postop blood loss/Anemia (stable without transfusion)
-Acute postop atelectasis
-Acute postop hypovolemia with subsequent hypervolemia
Discussed patient care with: Cardiology, Nursing, Respiratory Therapy, Pharmacy and Care Team
Subjective
Procedure
S/P Median sternotomy/AVR (#23mm Inspiris Resilia)/Ascending aortic wrap w/ Hemashield soboba graft, by Dr. Mendoza, 07/27/24
-
Date of Service: July 29, 2024
Pt c/o incisional pain, otherwise feels well
Objective Data
-
PT 16.3 Sec (11.4-14.6) H 07/27/24 12:16
INR 1.33 07/27/24 12:16
APTT 33.6 Sec (23.4-35.0) 07/27/24 12:16
Vital Signs
Vital Signs
Temp Pulse Resp BP Pulse Ox
98.8 F 69 16 119/49 97
07/29/24 02:15 07/29/24 02:15 07/29/24 02:15 07/29/24 02:15 07/29/24 02:[address]
CT Intake/Output/Weight
07/28/24 07/28/24 07/29/24
06:59 18:59 06:59
Intake Total 723.6 / 1843.9 309.0 / 827.8 518.8 / 827.8
Output Total 445 / 1115 370 / 760 390 / 760
Balance 278.6 / 728.9 -61.0 / 67.8 128.8 / 67.8
SaO2: 97 (RA)
Physical Exam
-
General: Awake, Oriented and AOx3
Cardiovascular: Regular rate & rhythm, No Murmurs, No Rub and No Gallop
Respiratory: Decreased Breath Sounds (at bases, otherwise clear)
Sternum: Stable
Incision: Clean, Dry, Intact and Dressing Intact
Extremities: Other (+trace edema)
Data Reviewed
-
Lab Results: Results Reviewed
Medications: Active Meds Reviewed
Chest X-Ray: Report Reviewed and Image Reviewed
ECG: Report Reviewed and Image Reviewed
[2024-07-29] MEDS: ROXICODONE 5 MG PO (04:55)
[2024-07-29] MEDS: TYLENOL 1000 MG PO ×3 (04:56→21:07)
[2024-07-29 05:05] LABS: Mixed Venous O2 Saturation 58.3 %
--- NOTE | 2024-07-29 05:20 | PTCARENOTE ---
Patient A+A+Ox3. No neurological deficits noted. Tylenol 1,000mg PO and Roxicodone 5mg PO given for pain management. AM lab work collected and sent. Portable CXR completed. C.O. 5.44 C.I. 3.11 SVR 853 CVP 13 PAP 40/15 (23).
Assessment/Interventions as documented.
[2024-07-29 05:30] LABS: Hematocrit 22.2 % (37.0-47.0); Hemoglobin 7.9 g/dL (12.0-16.0); Mean Corp Hgb Conc. 35.7 g/dL (33.0-37.0); Mean Corpuscular Hgb 32.5 pg (27.0-31.0); Mean Corpuscular Volume 90.9 fL (81.0-99.0); Mean Platelet Volume 10.9 fL (7.4-10.4); Platelet Count 99 10^3/uL (130-400); Red Blood Cell Count 2.43 10^6/uL (4.20-5.40); Red Cell Dist. Width 13.8 % (11.5-14.5); White Blood Cell Count 9.8 10^3/uL (4.8-10.8)
[2024-07-29 05:40] LABS: Blood Urea Nitrogen 44 mg/dl (7-17); Calcium 8.4 mg/dl (8.4-10.2); Carbon Dioxide 25 mmol/L (22-30); Chloride 102 mmol/L (98-107); Estimated Creatinine Clearance 44 ml/min; Glucose 131 mg/dl (70-99); Magnesium 2.3 mg/dl (1.6-2.3); Potassium 4.2 mmol/L (3.5-5.1); Sodium 137 mmol/L (135-145); eGFR 53.72
[2024-07-29 07:52] LABS: B.E. 2.6 mmol/L; HCO3 27.2 mmol/L (21-28); O2 Saturation % 99.9 % (94-98); PCO2 41 mmHg (32-35); PO2 102 mmHg (83-108); pH 7.43 (7.35-7.45)
--- NOTE | 2024-07-29 08:11 | PTCARENOTE ---
Dr Crocker at bedside and Dobutamine stopped at this time.
[2024-07-29] MEDS: BACTROBAN 2% OINTMENT 1 APPLIC NASAL ×2 (08:20→20:01)
--- NOTE | 2024-07-29 08:20 | PTCARENOTE ---
Received pt from maintenance technician 3rd shift RN; pt AAOx3 and resting comfortably in bed; NSR on monitor and VSS; RIJ Cordis, [place] floated to 45, Left A-line and PIVx1 patent; Dobutamine off at this time next cardiac index at 0900; Lungs diminished; IS to 750; CT
x2 to -20 wall suction no air leak and no crepitus noted; positive bowel sounds; Salcedo catheter draining yellow urine; palpable pulses throughout; no edema noted; surgical site C/D/I; see nursing documentation for further details.
[2024-07-29] MEDS: SENOKOT-S 1 TABLET PO ×2 (08:21→20:01)
[2024-07-29] MEDS: PROTONIX 40 MG PO (08:21)
[2024-07-29] MEDS: MAGNESIUM OXIDE 500 MG PO ×2 (08:21→20:01)
[2024-07-29] MEDS: NEURONTIN 100 MG PO ×3 (08:21→21:09)
[2024-07-29] MEDS: VITAMIN D3 (cholecalciferol) 25 MCG PO (08:21)
[2024-07-29] MEDS: LOW STRENGTH ASPIRIN 81 MG PO (08:21)
[2024-07-29] MEDS: CRESTOR 5 MG PO (08:21)
--- NOTE | 2024-07-29 09:17 | PTCARENOTE ---
Epicardial V wire in place and box turned off.
--- NOTE | 2024-07-29 10:33 | PTCARENOTE ---
1 unit PRBC infusing per CV PA order; Mediastinal Chest Tubes X2 removed per CV PA order and Epicardial V wire insulated.
[2024-07-29] MEDS: MUCINEX 1200 MG PO ×2 (10:37→20:01)
[2024-07-29] MEDS: KCL 20 MEQ PO (12:26)
[2024-07-29] MEDS: LASIX 40 MG IV (12:26)
--- NOTE | 2024-07-29 13:11 | PTCARENOTE ---
NSR on monitor and VSS; assessment unchanged; [place]-yoly catheter, left a-line and Salcedo catheter removed per CVPA order.
--- NOTE | 2024-07-29 17:13 | PTCARENOTE ---
Assessment unchanged; NSR on monitor and VSS; pt resting comfortably.
[2024-07-29] MEDS: TOPROL XL 12.5 MG PO (20:01)
--- NOTE | 2024-07-29 20:36 | PTCARENOTE ---
Assumed care of pt from dayshift RN. Walking rounds completed. Pt AAOx3. BETANCOURT. Pt is SR on the tele monitor. HR 60-70s. Temporary epicardial v-wire insulated. BP stable. Palpable pulses throughout. Trace edema. Pt on RA. POX 96%. Lung sounds
diminished. IS and deep breathing encouraged. Abdomen soft/nontender. +BS. Pt has voided since Salcedo removal. Sternal incision w/ surgical bandage intact. CT dressing CDI. Right IJ cordis and PIVx1 CDI. No c/o pain at this time. See worklist for
full nursing assessment and interventions. Call bazan within reach.
[2024-07-30] VITALS (16 sets, daily range): BP systolic 76–125; BP diastolic 45–65; PULSE 69; O2SAT 95–96; BMI 35.0
--- NOTE | 2024-07-30 00:17 | PTCARENOTE ---
No acute changes in assessment. VSS. Pt on 2 L NC. POX 97%. All surgical sites stable. Call bazan within reach.
[2024-07-30] MEDS: FLEXERIL 5 MG PO (01:56)
--- NOTE | 2024-07-30 03:30 | PTCARENOTE ---
Pt reassessed. Pt remains SR on the tele monitor. HR 60s. BP stable. Temporary epicardial v-wire insulated. Pt on 2 L NC. POX 97-98%. All surgical sites stable. Pt repositioned in bed. Labs drawn and sent. Call bazan within reach.
[2024-07-30 03:33] LABS: Ionized Calcium 1.14 mMOL/L (1.15-1.33)
[2024-07-30 03:53] LABS: Hematocrit 24.4 % (37.0-47.0); Hemoglobin 8.5 g/dL (12.0-16.0); Mean Corp Hgb Conc. 34.8 g/dL (33.0-37.0); Mean Corpuscular Hgb 30.7 pg (27.0-31.0); Mean Corpuscular Volume 88.1 fL (81.0-99.0); Mean Platelet Volume 11.4 fL (7.4-10.4); Platelet Count 108 10^3/uL (130-400); Red Blood Cell Count 2.77 10^6/uL (4.20-5.40); White Blood Cell Count 10.2 10^3/uL (4.8-10.8)
[2024-07-30 04:11] LABS: Blood Urea Nitrogen 32 mg/dl (7-17); Calcium 8.2 mg/dl (8.4-10.2); Carbon Dioxide 30 mmol/L (22-30); Chloride 100 mmol/L (98-107); Estimated Creatinine Clearance 55 ml/min; Glucose 106 mg/dl (70-99); Magnesium 2.2 mg/dl (1.6-2.3); Potassium 3.7 mmol/L (3.5-5.1); Sodium 138 mmol/L (135-145); eGFR > 60.00
[2024-07-30] MEDS: NSS 500 IV (04:17)
[2024-07-30] MEDS: CALCIUM CHLORIDE 10% SYRINGE 60 MG IV (04:17)
--- NOTE | 2024-07-30 04:35 | W.PN.CT ---
Addendum entered and electronically signed by Gary Mendoza MD 07/30/24 12:12:
I saw and examined the patient.
The PA's note was reviewed and I agree with the note.
Comment:
OOB/IS/ambulate
D/C cordis
D/C planning for 1-2 days
Original Note:
Today's Communication / Plan
-
Plan:
-No major issues overnight. Hemodynamically and neurologically intact
-Received 1u prbc yesterday for h/h 7.9/22.7, up to 8.5/24.4 today. Weaned off dobutamine yesterday, currently off all drips
-BP has been soft postop, tolerating Toprol XL 12.5 mg BID. Amiodarone is on hold given postop bradycardia
-Cont. current meds (ASA, Crestor; holding Amiodarone and Lopressor while on dobutamine)
-D/C cordis
-Replete electrolytes
-Maintain temporary PW (will cut before d/c home)
-Encourage use of IS
-OOB into chair/Ambulate
-Likely home tomorrow
Assessment / Plan
-
Assessment:
-S/P Median sternotomy/AVR (#23mm Inspiris Resilia)/Ascending aortic wrap w/ Hemashield [place] graft, by Dr. Mendoza, 07/27/24, pod#3
-Severe /bicuspid aortic valve
-Dilated Asc. Aorta (max 4.4 cm)
-Thin aortic wall
-LVEF 60-65% per intraop KELLY
-HLD
-Class 1 obesity (BMI 33.8)
-1st deg HB
-Syncope
-S/p Left TKA
-S/p Right wrist repair
-S/p Breast implants
-Acute postop blood loss/Anemia (transfused 1u PRBC)
-Acute postop atelectasis
-Acute postop hypovolemia with subsequent hypervolemia
-Postop cardiogenic shock (CI 1.66)
-Postop bradycardia
Discussed patient care with: Cardiology, Nursing, Respiratory Therapy, Pharmacy and Care Team
Subjective
Procedure
S/P Median sternotomy/AVR (#23mm Inspiris Resilia)/Ascending aortic wrap w/ Hemashield [place] graft, by Dr. Mendoza, 07/27/24
-
Date of Service: July 30, 2024
Pt states feels stronger following blood transfusion yesterday, states pain has lessened following removal of chest tubes yesterday
Objective Data
-
Lab Results
07/30/24 03:26
07/30/24 03:26
PT 16.3 Sec (11.4-14.6) H 07/27/24 12:16
INR 1.33 07/27/24 12:16
APTT 33.6 Sec (23.4-35.0) 07/27/24 12:16
Vital Signs
Vital Signs
Temp Pulse Resp BP Pulse Ox
98.1 F 63 18 119/60 97
07/30/24 03:22 07/30/24 03:22 07/30/24 03:22 07/30/24 03:22 07/30/24 03:22
CT Intake/Output/Weight
07/29/24 07/29/24 07/30/24
06:59 18:59 06:59
Intake Total 883.2 / 1215.8 673.6 / 753.6 80 / 753.6
Output Total 660 / 1110 1325 / 1875 550 / 1875
Balance 223.2 / 105.8 -651.4 / -1121.4 -470 / -1121.4
SaO2: 97 (RA)
Physical Exam
-
General: Awake, Oriented and AOx3
Cardiovascular: Regular rate & rhythm, No Murmurs, No Rub and No Gallop
Respiratory: Decreased Breath Sounds (at bases, otherwise clear)
Sternum: Stable
Incision: Clean, Dry, Intact and Dressing Intact
Extremities: Other (+trace edema)
Data Reviewed
-
Lab Results: Results Reviewed
Medications: Active Meds Reviewed
Chest X-Ray: Report Reviewed and Image Reviewed
ECG: Report Reviewed and Image Reviewed
[2024-07-30] MEDS: TYLENOL 1000 MG PO ×3 (05:20→21:23)
[2024-07-30] MEDS: KCL 40 MEQ PO ×2 (05:20→08:54)
--- NOTE | 2024-07-30 08:20 | W.PN.CD ---
Today's Communication / Plan
-
ambulate
Impression / Plan
-
BACKGROUND: 69F with HTN, & PAD, and severe who presented for AVR
Hand Tube Winder: Dr. Spain
Severe S/P Inspiris Resilia AVR (23mm) on 07/27/[address] Mendoza
-Post KELLY: Normal biventricular function with well-seated AVR w/o PVL/AI, mean gradient 5mmHg
-Looks great
PAD, 50% calcified lesion inside the right internal carotid artery, on rosuvastatin
Walk today hoperfully home tomorrow
SUBJECTIVE:
Looks and feels great
Physical Exam
Vital Signs/Labs
Vital Signs
Temp Pulse Resp BP Pulse Ox
98.1 F 63 18 103/54 92
07/30/24 03:22 07/30/24 06:45 07/30/24 03:22 07/30/24 06:28 07/30/24 06:45
07/29/24 07/30/24 07/31/24
06:59 06:59 06:59
Actual Weight 182 lb 5.156 oz 179 lb 3.773 oz
07/30/24 03:26
07/30/24 03:26
PT 16.3 Sec (11.4-14.6) H 07/27/24 12:16
INR 1.33 07/27/24 12:16
APTT 33.6 Sec (23.4-35.0) 07/27/24 12:16
Magnesium 2.2 mg/dl (1.6-2.3) 07/30/24 03:26
Physical Exam
Constitutional: No acute distress and Comfortable
Cardiovascular: Rhythm & rate is regular, Systolic murmur absent and Diastolic murmur absent
Respiratory: Other (diminished breath sounds)
GI: Soft and Non tender
Neuro/Psych: AO x 3 and Motor deficits absent
Data Reviewed
-
Date of Service: July 30, 2024
[2024-07-30] MEDS: MUCINEX 1200 MG PO ×2 (08:23→19:38)
[2024-07-30] MEDS: MAGNESIUM OXIDE 500 MG PO ×2 (08:24→19:38)
[2024-07-30] MEDS: CRESTOR 5 MG PO (08:24)
[2024-07-30] MEDS: PROTONIX 40 MG PO (08:24)
[2024-07-30] MEDS: SENOKOT-S 1 TABLET PO ×2 (08:24→19:38)
[2024-07-30] MEDS: VITAMIN D3 (cholecalciferol) 25 MCG PO (08:24)
[2024-07-30] MEDS: NEURONTIN 100 MG PO ×3 (08:25→21:23)
[2024-07-30] MEDS: BACTROBAN 2% OINTMENT 1 APPLIC NASAL ×2 (08:25→19:38)
[2024-07-30] MEDS: LOW STRENGTH ASPIRIN 81 MG PO (08:25)
[2024-07-30] MEDS: LASIX 40 MG IV (08:54)
--- NOTE | 2024-07-30 09:16 | PTCARENOTE ---
Received pt from overnight houseperson RN; pt AAOx3 and resting comfortably in chair; NSR on monitor and VSS; Epicardial V-wire insulated; Lungs diminished; IS to 1000; positive bowel sounds and pt voiding yellow urine; palpable pulses throughout; trace
generalized edema noted; all surgical sites C/D/I; see nursing documentation for further details.
[2024-07-30] MEDS: TOPROL XL 12.5 MG PO ×2 (10:33→19:57)
--- NOTE | 2024-07-30 11:11 | CM ---
Reviewed chart. Met with Mrs. Hernandez to review discharge plans. She states she is feeling well and maybe able to go home soon. She states prior to admission she resides with her daughter in a two story home with no steps to enter. She states she
has been staying on the first floor and not going up the stairs. She states she has a full bathroom on the first floor. She states prior to admission she was independent with ambulation and adls. She ambulated 300 feet today. She states she does
not have any DME in the home. She states she has a prescription plan and uses [facility]. She states her daughter works from home and will be available to assist in her care. She states her tow grandchildren will be around on
certain days also to assist in her care if needed. They both are going to nursing school. We reviewed a home visit by the Transitional Care Nurse. She is agreeable to a home visit. Medical work-up in progress. The discharge plan is to return
home with her daughter, family support and a home visit by the Transitional Care Nurse when medically stable.
[2024-07-30] MEDS: ROXICODONE 2.5 MG PO (11:48)
--- NOTE | 2024-07-30 12:00 | PTCARENOTE ---
Pt assessed while she sitting in the chair. VSS. Rates left knee pain /-see MAR. Ambulates with standby assist in the room. NSR on tele with rates in the 60s. BP stable. POX 96% on RA. Lungs diminished in the bases. IS encouraged. Abdomen soft,
nontender. +BS. +Gas. Voiding adequate amounts of clear yellow urine in the toilet. Surgical sites stable. Right IJ cordis intact and PIV intact. See MAR for medication administration. See worklist for complete nursing assessment. Plan of care
reviewed and pt in agreement.
--- NOTE | 2024-07-30 16:21 | PTCARENOTE ---
Pt reassessed. VSS. Denies pain. Ambulating in the room with standby assist. Surgical sites stable. Assisted to bed to d/c right IJ cordis per orders. Pt tolerated. Old chest tube sites redressed with 4x4, no drainage. Assisted back OOB to chair.
Family at bedside.
--- NOTE | 2024-07-30 20:00 | PTCARENOTE ---
assumed care of pt from previous RN. pt A&Ox4, resting in chair at time of assessment. SR on tele-monitor. temp epicardial v-wires insulated. POX 97% on RA. abd s/n, +BS. voiding clear, yellow urine. all surgical sites stable, CDI. PIV intact. see
worklist for complete nursing assessment, interventions, VS, and I&Os.
[2024-07-31] VITALS (10 sets, daily range): BP systolic 99–119; BP diastolic 49–62; PULSE 80; O2SAT 96–97; BMI 35.1
--- NOTE | 2024-07-31 | PTCARENOTE ---
assessment remains unchanged. VSS.
--- NOTE | 2024-07-31 03:21 | W.PN.CT ---
Today's Communication / Plan
-
Plan:
-No major issues overnight. Hemodynamically and neurologically intact
-Off all drips
-BP has been soft postop, tolerating Toprol XL 12.5 mg BID. Amiodarone is on hold given postop bradycardia
-Monitor h/h 8.2/23.7
-Cont. diuresis as BP permits
-Cont. current meds (ASA, Crestor; holding Amiodarone and Lopressor while on dobutamine)
-F/U 2-view cxr
-Replete electrolytes
-Maintain temporary PW (will cut before d/c home)
-Encourage use of IS
-OOB into chair/Ambulate
-Likely home later today vs tomorrow
Assessment / Plan
-
Assessment:
-S/P Median sternotomy/AVR (#23mm Inspiris Resilia)/Ascending aortic wrap w/ Hemashield [place] graft, by Dr. Mendoza, 07/27/24, pod#4
-Severe /bicuspid aortic valve
-Dilated Asc. Aorta (max 4.4 cm)
-Thin aortic wall
-LVEF 60-65% per intraop KELLY
-HLD
-Class 1 obesity (BMI 33.8)
-1st deg HB
-Syncope
-S/p Left TKA
-S/p Right wrist repair
-S/p Breast implants
-Acute postop blood loss/Anemia (transfused 1u PRBC)
-Acute postop atelectasis
-Acute postop hypovolemia with subsequent hypervolemia
-Postop cardiogenic shock (CI 1.66)
-Postop bradycardia
Discussed patient care with: Cardiology, Nursing, Respiratory Therapy, Pharmacy and Care Team
Subjective
Procedure
S/P Median sternotomy/AVR (#23mm Inspiris Resilia)/Ascending aortic wrap w/ Hemashield [place] graft, by Dr. Mendoza, 07/27/24
-
Date of Service: July 31, 2024
Pt c/o mild incisional and left knee pain, otherwise feels well. Ambulating halls without difficulty
Objective Data
-
PT 16.3 Sec (11.4-14.6) H 07/27/24 12:16
INR 1.33 07/27/24 12:16
APTT 33.6 Sec (23.4-35.0) 07/27/24 12:16
Vital Signs
Vital Signs
Temp Pulse Resp BP Pulse Ox
97.9 F 76 14 99/51 88
07/31/24 00:00 07/31/24 00:00 07/31/24 00:00 07/30/24 23:44 07/31/24 00:00
CT Intake/Output/Weight
07/30/24 07/30/24 07/31/24
06:59 18:59 06:59
Intake Total 110 / 783.6 280 / 280
Output Total 1250 / 2575 1025 / 1775 750 / 1775
Balance -1140 / -1791.4 -745 / -1495 -750 / -1495
SaO2: 92 (RA)
Physical Exam
-
General: Awake, Oriented and AOx3
Cardiovascular: Regular rate & rhythm, No Murmurs, No Rub and No Gallop
Respiratory: Decreased Breath Sounds (at bases, otherwise clear)
Sternum: Stable
Incision: Clean, Dry, Intact and Dressing Intact
Extremities: Other (+trace edema)
Data Reviewed
-
Lab Results: Results Reviewed
Medications: Active Meds Reviewed
Chest X-Ray: Report Reviewed and Image Reviewed
ECG: Report Reviewed and Image Reviewed
--- NOTE | 2024-07-31 04:00 | PTCARENOTE ---
assessment remains unchanged. VSS. AM labs collected and sent.
[2024-07-31 04:03] LABS: Ionized Calcium 1.21 mMOL/L (1.15-1.33)
[2024-07-31 04:05] LABS: Hematocrit 23.7 % (37.0-47.0); Hemoglobin 8.2 g/dL (12.0-16.0); Mean Corp Hgb Conc. 34.6 g/dL (33.0-37.0); Mean Corpuscular Hgb 30.5 pg (27.0-31.0); Mean Corpuscular Volume 88.1 fL (81.0-99.0); Mean Platelet Volume 10.9 fL (7.4-10.4); Platelet Count 124 10^3/uL (130-400); Red Blood Cell Count 2.69 10^6/uL (4.20-5.40); Red Cell Dist. Width 13.6 % (11.5-14.5); White Blood Cell Count 8.3 10^3/uL (4.8-10.8)
[2024-07-31 04:16] LABS: Blood Urea Nitrogen 29 mg/dl (7-17); Calcium 8.6 mg/dl (8.4-10.2); Carbon Dioxide 29 mmol/L (22-30); Chloride 103 mmol/L (98-107); Estimated Creatinine Clearance 54 ml/min; Glucose 107 mg/dl (70-99); Potassium 4.1 mmol/L (3.5-5.1); Sodium 138 mmol/L (135-145); eGFR > 60.00
[2024-07-31] MEDS: CALCIUM GLUCONATE 100 IV (06:27)
[2024-07-31] MEDS: TYLENOL 1000 MG PO ×2 (06:33→15:06)
--- NOTE | 2024-07-31 07:50 | W.PN.CD ---
Today's Communication / Plan
-
looks great
Impression / Plan
-
BACKGROUND: 69F with HTN, & PAD, and severe who presented for AVR
Wood Craftsman: Dr. Spain
Severe S/P Inspiris Resilia AVR (23mm) on 07/27/[address] Mendoza
-Post KELLY: Normal biventricular function with well-seated AVR w/o PVL/AI, mean gradient 5mmHg
-Looks great and ready for home
PAD, 50% calcified lesion inside the right internal carotid artery, on rosuvastatin
cardiology f/u with Dr Spain
SUBJECTIVE:
Looks and feels great
Physical Exam
Vital Signs/Labs
Vital Signs
Temp Pulse Resp BP Pulse Ox
97.9 F 71 14 106/58 90
07/31/24 00:00 07/31/24 06:00 07/31/24 04:04 07/31/24 03:33 07/31/24 04:04
07/30/24 07/31/24 08/01/24
06:59 06:59 06:59
Actual Weight 179 lb 3.773 oz 179 lb 14.355 oz
07/31/24 03:42
07/31/24 03:42
PT 16.3 Sec (11.4-14.6) H 07/27/24 12:16
INR 1.33 07/27/24 12:16
APTT 33.6 Sec (23.4-35.0) 07/27/24 12:16
Magnesium 2.0 mg/dl (1.6-2.3) 07/31/24 03:42
Physical Exam
Constitutional: No acute distress and Comfortable
EENT: Anicteric
Cardiovascular: Rhythm & rate is regular, S1S2 is normal and Murmur/rub/gallop absent
Respiratory: Respiratory effort normal and Wheeze Absent
GI: Soft and Non tender
Neuro/Psych: AO x 3 and Motor deficits absent
Data Reviewed
-
Date of Service: July 31, 2024
--- NOTE | 2024-07-31 08:25 | W.DCSUMMARY ---
Discharge Summary
Discharge Data
Date of Admission: 07/27/24
Date of Discharge: 07/31/24
Total time spent discharging patient (in min): 40
-
Pending Results: No
Hospital Course
Primary care physician:
Dr. Ayo Hernández
Outpatient admitting interviewer:
Dr. Spain
Inpatient consultants:
CBC, cryptographic center specialist
Procedures:
1. AVR (#23mm Inspiris Resilia) and Ascending aortic wrap w/ Hemashield marshall graft
Primary Diagnosis:
1. Severe aortic stenosis
Secondary Diagnoses:
1. Hyperlipidemia
2. Carotid Stenosis
3. First degree heart block
4. Post-operative fluid overload
5. Post-operative cardiogenic shock
6. post-operative bradycardia
HPI: 68 y/o female with severe aortic stenosis presents electively on 07/27 for a SAVR with Dr. Mendoza.
Hospital course: Patient presented to [facility] electively on 07/27. She underwent the procedure with dr. Mendoza and returned to the CVICU for the remainder of her recovery. She was on levophed, precedex, and insulin. Precedex was weaned
off and patient was extubated by 4pm. on 10/28 POD #1, patients mixed venous saturations and cardiac index dropped and was started on dobutamine at 1.5 mcg/kg/min. On 07/29 postoperative day #2 patient received 1 unit of packed red blood cells for
postoperative anemia and dobutamine was weaned off. Seanor-Vishal catheter was removed and patient progressed to telemetry status. Chest tubes and Salcedo was removed and patient was diuresed with 40 mg of IV Lasix. On 07/30 postoperative day #3
patient was diuresed with 40 mg of IV Lasix Cordis catheter was removed and patient ambulated in the hallways. She did complain of mild knee pain that improved with ambulation. On 07/31 postoperative day #4, patient was again diuresed with 40 mg
of IV Lasix. She was deemed stable for discharge so two-view chest x-ray was performed and was stable. Ventricular wire was cut at the skin and she was discharged home.
Home medication changes:
see below
Discharge Plan
-
Patient Disposition: Home (Routine Discharge)
Discharge Diagnosis/Procedures: AVR #23 inspiris valve and aortic valve
Condition: Good
Diet: Low Cholesterol
Activity: No strenuous activity
Driving Restrictions: Not until seen by your Dr
Bathing Restrictions: OK to Shower
Other Services: Cardiac Rehab
Specialty Instructions: Weigh Daily- Call MD for wt gain/loss 3 lbs overnight/5 lbs in 1 week
Activity Restrictions/Additional Instructions:
Please call [facility] outpatient Cardiac Rehab phase 2 program to schedule your first visit at [phone]
ACTIVITY:
-No strenuous activity: no heavy lifting, pushing, pulling anything over 15 pounds for one month
-continue to use stairs as tolerated
DRIVING RESTRICTIONS:
-No driving for one month or until approved by your surgeon
WOUND CARE:
-Shower daily. Use soap & water.
-No lotions, creams or powders on incision area.
DIET:
-continue a low fat/low cholesterol diet.
-IF you are diabetic, continue carb controlled diet.
CARDIAC REHAB:
-Please make appointment to start in 5-6 weeks with your local hospital program. (See Cardiac Rehabilitation Discharge Booklet).
SPECIALTY INSTRUCTIONS:
-Weigh yourself daily. Call your physician for any weight gain/loss of 3 lbs overnight or 5 lbs in one week.
-REPORT any clicking noise or uneven appearance of your sternum to your surgeon immediately.
-If you smoke, you are instructed to quit. The [facility] smoking hotline phone number is [phone]
Referrals:
CT Transitional Care Nurse [Outside]
Migel Hernández DO [Family Provider] - in four to six weeks
(Please make an appintment in four to six weeks.
)
Aaron Spain MD [Active] - 09/10/24 2:20 pm
Gary Mendoza MD [Active] - 08/29/24 2:15 pm
Prescriptions:
New
metoprolol succinate 25 mg Tablet Extended Release 24 Hr
12.5 mg PO BID Qty: 90 0RF
acetaminophen 325 mg Tablet
650 mg PO Q4HPRN PRN (Reason: mild pain,headache,temp >101F ) Qty: 0 0RF
gabapentin 100 mg Capsule
100 mg PO TID PRN (Reason: post-op pain) Qty: 30 0RF
oxycodone 5 mg Tablet
2.5 mg PO Q4HPRN PRN (Reason: severe pain) Qty: 7 0RF
Continued
aspirin 81 mg Tablet,Chewable
81 mg PO DAILY
rosuvastatin 5 mg Tablet
5 mg PO DAILY
cholecalciferol (vitamin D3) [Vitamin D3] 25 mcg (1,000 unit) Capsule
25 mcg PO DAILY
Discharge Orders:
Discharge Patient (As Directed); Ordered 07/31/24
Ordered By: Christie Ortiz
Care Plan Goals
Care Plan Goals:
Problem: Readiness for enhanced knowledge related to diagnosis and treatment plan
Goal: Understand your diagnosis and treatment plan needs, including medications if applicable.
Instructions: Know your diagnosis, underlying causes and treatment plan options, including medications if applicable. Consult with your health care team to learn about your diagnosis and treatment plan, including medications if applicable.
Discharge Date and Time
Print Language: THAI
--- NOTE | 2024-07-31 09:00 | PTCARENOTE ---
Resumed care of patient. Walking rounds completed. Pt assessed while she was sitting in the chair. Pt alert and oriented x4. BETANCOURT with equal strength throughout. Independent ambulating in the room. NSR on tele with rates in the 70s. BP stable 114/60.
Bilateral radial and DP pulses palpable. +1 edema to b/l lower extremities. Epicardial v-wire insulated. POX 96% on RA. Lungs diminished in the bases. IS encouraged-1250mL achieved. No cough noted. Abdomen soft, round, obese, nontender. +BS. +BM. Pt
voiding in the toilet adequate amounts of stacy urine. Sternal incision covered with Aquacel-CDI. Old chest tube sites covered, CDI. Right hand 20g PIV intact. See MAR for medication administration. See worklist for complete nursing assessment. Plan
of care reviewed and patient in agreement.
[2024-07-31] MEDS: TOPROL XL 12.5 MG PO (09:11)
[2024-07-31] MEDS: FLUSH (NSS) 1 FLUSH IV (09:11)
[2024-07-31] MEDS: VITAMIN D3 (cholecalciferol) 25 MCG PO (09:11)
[2024-07-31] MEDS: LASIX 40 MG IV (09:11)
[2024-07-31] MEDS: MUCINEX 1200 MG PO (09:12)
[2024-07-31] MEDS: SENOKOT-S 1 TABLET PO (09:12)
[2024-07-31] MEDS: NEURONTIN 100 MG PO ×2 (09:12→15:06)
[2024-07-31] MEDS: CRESTOR 5 MG PO (09:12)
[2024-07-31] MEDS: MAGNESIUM OXIDE 500 MG PO (09:12)
[2024-07-31] MEDS: BACTROBAN 2% OINTMENT 1 APPLIC NASAL (09:12)
[2024-07-31] MEDS: LOW STRENGTH ASPIRIN 81 MG PO (09:12)
[2024-07-31] MEDS: PROTONIX 40 MG PO (09:12)
[2024-07-31] MEDS: KCL 20 MEQ PO (09:12)
[2024-07-31] MEDS: NSS IV (09:13)
--- NOTE | 2024-07-31 09:15 | PTCARENOTE ---
Pt assisted to bed. CT BIOINFORMATICS DEVELOPER at bedside to cut epicardial v-wire. Sternal dressing d/c. Incision approximated. Pt tolerated.
--- NOTE | 2024-07-31 09:43 | PTCARENOTE ---
Pt transported to CXR.
--- NOTE | 2024-07-31 10:01 | W.[place]-PDMP ---
[place]PD[place]
-
Checked the [place]- Pres[place] Drug Monitoring Program website, no red flags identified; safe to proceed with prescription.
--- NOTE | 2024-07-31 11:29 | PTCARENOTE ---
Pt reassessed. VSS. Voiding clear yellow urine in the toilet. Pt states son will pick her up between 5pm & 6pm.
--- NOTE | 2024-07-31 15:13 | PTCARENOTE ---
Pt reassessed. VSS. Resting in the chair. No changes.
--- NOTE | 2024-07-31 16:15 | PTCARENOTE ---
Pt showered. Tolerated. PIV d/c.
== END 2024-07-31 17:50 | disposition home or self-care (01) | DRG 219 ==
LOC: CVICU 04:51
PROVIDERS: Anesthesiology; Clinical Nurse Specialist Acute Care; Physician Assistant Medical; ADMITTING PHYSICIAN Thoracic Surgery (Cardiothoracic Vascular Surgery); CONSULT PHYSICIAN Internal Medicine Critical Care Medicine; FAMILY PHYSICIAN Family Medicine
PROC: 5A1221Z Performance of Cardiac Output, Continuous (ICD-10-PCS; 2024-07-27)
PROC: 30233N1 Transfusion of Nonautologous Red Blood Cells into Peripheral Vein, Percutaneous Approach (ICD-10-PCS; 2024-07-27)
PROC: B24BZZ4 Ultrasonography of Heart with Aorta, Transesophageal (ICD-10-PCS; 2024-07-27)
PROC: 02UX0JZ Supplement Thoracic Aorta, Ascending/Arch with Synthetic Substitute, Open Approach (ICD-10-PCS; 2024-07-27)
PROC: 02RF08Z Replacement of Aortic Valve with Zooplastic Tissue, Open Approach (ICD-10-PCS; 2024-07-27)
DX: Q23.81 Bicuspid aortic valve (principal); T81.11XA Postprocedural cardiogenic shock, initial encounter; D62 Acute posthemorrhagic anemia; J98.11 Atelectasis; I77.810 Thoracic aortic ectasia; E78.5 Hyperlipidemia, unspecified; E78.00 Pure hypercholesterolemia, unspecified; I65.29 Occlusion and stenosis of unspecified carotid artery; I44.0 Atrioventricular block, first degree; E87.70 Fluid overload, unspecified; Y83.2 Surgical operation with anastomosis, bypass or graft as the cause of abnormal reaction of the patient, or of later complication, without mention of misadventure at the time of the procedure; R00.1 Bradycardia, unspecified; E66.811 Obesity, class 1; E86.1 Hypovolemia; I73.9 Peripheral vascular disease, unspecified; Z68.33 Body mass index [BMI] 33.0-33.9, adult; Z79.82 Long term (current) use of aspirin; Z79.899 Other long term (current) drug therapy; Z87.891 Personal history of nicotine dependence
CPT/HCPCS: 88305; 88311; 36415; 71045; 71046; 80048; 80053; 81003; 81015; 82248; 82330; 82565; 82805; 82810; 82947; 82962; 83036; 83735; 84132; 84302; 84520; 85014; 85018; 85025; 85027; 85049; 85610; 85730; 86850; 86900; 86901; 86920; 87070; 93005; 93312; 93320; 93325; 93880; 94002; 99406; P9016; P9045